=== PATIENT | female | born 1985 | race Caucasian/White ===

== ENCOUNTER → 2020-07-25 10:27 | Outpatient (CLI) | payer OTHER, SELFPAY ==
[2019-01-19 09:46] VITALS: BMI 25.2
[2020-07-25 14:11] LABS: Color, Urine Yellow (Yellow); Glucose, Dipstick Normal (Normal); Ketone-Dipstick Negative (Negative); Leukocyte Esterase-Dipstick 25 /ul (Negative); Nitrite-Dipstick Negative (Negative); Occult Blood-Urine Negative /ul (Negative); Protein-Dipstick Negative (Negative); Urine Bilirubin Dipstick Negative (Negative); Urine Clarity Cloudy (Clear); Urine Urobilinogen Normal (Normal)
[2020-07-25 14:13] LABS: Absolute Lymphocyte Count 1.31 X10^3/uL (0.83-4.51); Absolute Neutrophil Count 4.8 X10^3/uL (2.0-7.7); Basophil# 0.05 X10^3/uL; Basophil% 0.7 % (0-1); Eosinophil# 0.08 X10^3/uL; Eosinophils% 1.2 % (0-5); Hematocrit 41.6 % (37-47); Hemoglobin 13.3 g/dL (12.0-15.0); Lymphocyte # 1.31 X10^3/ul (4.0); Lymphocyte % 18.9 % (19-41); Mean Corpuscular Hgb 29.8 pg (27.0-32.0); Mean Corpuscular Volume 93.1 fL (81-99); Mean Platelet Vol. 11.1 fl (6.2-12.0); Monocyte# 0.55 X10^3/uL; Monocyte% 7.9 % (0-10); NRBC Flagged by Analyzer 0 % (0-5); Neutrophil # 4.82 X10^3/uL (2.7-7.7); Neutrophil % 69.7 % (47-70); Platelet Count 278 K/mm3 (150-450); RBC Distribution Width CV 12.6 % (11.6-14.6); RBC Distribution Width SD 43.2 fl (35.1-43.9); Red Blood Count 4.47 M/mm3 (4.2-5.4); White Blood Count 6.9 K/mm3 (4.4-11.0)
[2020-07-25 15:02] LABS: HIV - WCH Non-Reactive (Nonreactive); Hepatitis B Surface Antigen Non-Reactive (Nonreactive); Hepatitis C Antibody Non-Reactive (Nonreactive)
[2020-07-27 03:07] LABS: Chlamydia By Nucleic Acid AMP Negative (Negative)
[2020-07-27 04:31] LABS: Prenatal RPR NONREACTIVE (NONREACTIVE)
[2020-07-27 08:25] LABS: Gonococcus By Nucleic Acid AMP Negative (Negative)
[2020-07-28 08:38] LABS: Lead, Blood Adult 16+yrs 2 ug/dL (0-4)
[2020-08-01 04:09] LABS: HPV Genotype 16, Aptima Negative (Negative)
[2020-08-01 10:25] LABS: HPV APTIMA, High Risk Positive (Negative); HPV Genotype 18,45 Aptima Negative (Negative)
== END ==
PROVIDERS: PCP Internal Medicine; Visit Provider Obstetrics & Gynecology
DX: Z12.4 Encounter for screening for malignant neoplasm of cervix (principal); Z11.3 Encounter for screening for infections with a predominantly sexual mode of transmission; Z34.81 Encounter for supervision of other normal pregnancy, first trimester
CPT/HCPCS: 36415; 81002; 83655; 85025; 86703; 86762; 86803; 87340; 87491; 87591; 87624; 88175; G0145

== ENCOUNTER → 2023-11-19 | Outpatient (CLI) | payer OTHER, SELFPAY ==
--- OUTSIDE RECORDS SUMMARY | 2023-11-19 10:52 | XMS RPT_ITS | CCD ---
Author Name Unknown Address [address] [place] [address] Organization [facility] Care Team Providers Care Boat Outfitting Supervisor Name Role Phone Debbie MARROQUIN, Sissy Primary Care Provider PIETRO DESIGN COORDINATOR-CNBlair, STACY Kim Attending EshavaERASMO Evans DO Attending Unavailab ERASMO Young DO Attending Unavailab lizy DUVALL DESIGN COORDINATOR-CNBlair, YULISA Kim Attending Esha vailable Jesus MARROQUIN, [facility] Primary Care Provider Unavailbritt e Stacy Chapman Unavailable Unavailable DOC, [facility] Primary Care Unavailable ERASMO BORGES Referring Unavailable KRYSTA, COURTNEY A Attending Unavailable DOC, [facility] Primary Care Unavailable ERASMO BORGES E Referring Unavailable MOULTON, COURTNEY A Attending Unavailable DOC, [facility] Primary Care Unavailable FUENTES NATHAN Attending Unavailable MOULTON, COURTNEY A Referring Unavailable MOULTON, COURTNEY A Referring Unavailable MOULTON, COURTNEY A Attending Unavailable DOC, [facility] Primary Care Unavailable DOC, [facility] Primary Care Unavailable MOULTON, COURTNEY A Attending Unavailable MOULTON, COURTNEY A Referring Unavailable DOC, [facility] Primary Care Unavailable MOULTON, COURTNEY A Referring Unavailable MOULTON, COURTNEY A Attending Unavailable Allergies Allergy Classification Reported Allergen(s) Allergy Type Date of Onset Reaction(s) Facility (4 sources) Seasonal allergy; Translations: [SEASONAL ALLERGIES] Allergy to substance 5 Other: See Comments, Other (See Comments) [facility] Medications Current Medications Medication Drug Class(es) Dates Sig (Normalized) Sig (Original) Xnaifkj-Eiaguxcvr-Z itamin D (CALCIUM MAGNESIUM PO) (2 sources) Calcium-Magnesiu m- Vitamin D (CALCIUM MAGNESIUM PO) Take by mouth 0 Active docusate sodium 100 mg oral capsule (4 sources) Start: 04-01-2021 Colace 100 mg oral capsule Dose : 100 mg = 1 cap(s), Oral, BID, PRN Constipation, # 60 cap(s), 0 Refill(s), Pharmacy: [facility]/pharmacy #[id number], 170, cm, 03/29/21 18:13:00 EDT, Height, kg, 03/29/21 18:13:00 EDT, Dosing Weight Start Date: 04/01/21 Status: Ordered predniSONE 20 mg oral tablet (1 source) Start: 06-05-2022 End: 06-10-2022 take 2 tablets by mouth once daily predniSONE (DELTASONE) 20 mg tablet Indications: Sore throat Take 2 tablets by mouth once daily for 5 days. 10 tablet 0 06/05/2022 06/10/2022 Active Completed/Discontinued Medications Medication Drug Class(es) Dates Sig (Normalized) Sig (Original) citalopram 20 mg oral tablet (1 source) Serotonin Reuptake Inhibitor Start: 07-09-2018 take 0.5 tablet by mouth once daily, then take 1 tablet by mouth once daily citalopram (CELEXA) 20 mg tablet Indications: CHARLY (generalized anxiety disorder) 1/2 pill by mouth once daily X 1 week; then increase to a whole pill daily. 30 tablet 2 07/09/2018 Active Problems Active Problems Problem Classification Problem Date Documented Da te Episodic/Chronic Administrative/social admission (3 sources) Discussed with patient; Translations: [Other specified counseling] Onset: 05-22-2023 05-22-2023 Episodic Anxiety disorders (3 sources) Generalized anxiety disorder; Translations: [Generalized anxiety disorder] Onset: 07-09-2018 07-09-2018 Chronic Contraceptive and procreative management (1 source) Patient encounter status; Translations: [Encounter of female for testing for genetic disease carrier status for procreative management] 06-13-2023 Episodic Mood disorders (2 sources) Depressive disorder; Translations: [Depression] Onset: 05-22-2023 05-22-2023 Chronic Other complications of (1 source) ultrasound scan abnormal; Translations: [Abnormal ultrasonic finding on screening of mother] 06-13-2023 Episodic Other complications of (1 source) Multigravida of advanced maternal age; Translations: [Supervision of elderly multigravida, second trimester] 06-13-2023 Episodic Other upper respiratory infections (1 source) Sore throat symptom; Translations: [Acute pharyngitis, unspecified] Episodic Unclassified (2 sources) Breast feeding (infant) (observable entity) 03-30-2021 Past or Other Problems Problem Classification Problem Date Documented Da te Episodic/Chronic Other non-traumatic joint disorders (1 source) Pain in unspecified knee; Translations: [Pain in joint, lower leg] Onset: 2014 2014 Episodic Results Test Name Value Interpretation Reference Range Facil ity Vital Signs Date Time Vital Sign Value Performing Clinician Faci lity 06-05-2022 15:35-0400 Body temperature 97.7 [degF] Scotty Powell DESIGN COORDINATOR.FAMILY RESOURCE MANAGEMENT SPECIALIST Work Phone: [facility] 06-05-2022 15:35-0400 Body weight 85.73 kg Scotty Powell DESIGN COORDINATOR.FAMILY RESOURCE MANAGEMENT SPECIALIST Work Phone: [facility] 06-05-2022 15:35-0400 Diastolic blood pressure 72 mm[Hg] Scotty Powell DESIGN COORDINATOR.FAMILY RESOURCE MANAGEMENT SPECIALIST Work Phone: [facility] 06-05-2022 15:35-0400 Heart rate 68 /min Scotty Powell DESIGN COORDINATOR.FAMILY RESOURCE MANAGEMENT SPECIALIST Work Phone: [facility] 06-05-2022 15:35-0400 Respiratory rate 16 /min Scotty Powell DESIGN COORDINATOR.FAMILY RESOURCE MANAGEMENT SPECIALIST Work Phone: [facility] 06-05-2022 15:35-0400 SaO2% (BldA) [Mass fraction] 98 % Scotty Powell DESIGN COORDINATOR.FAMILY RESOURCE MANAGEMENT SPECIALIST Work Phone: [facility] 06-05-2022 15:35-0400 Systolic blood pressure 110 mm[Hg] Scotty Powell DESIGN COORDINATOR.FAMILY RESOURCE MANAGEMENT SPECIALIST Work Phone: [facility] Encounters Encounter Date Encounter Type Care Provider Facility Start: 06-18-2023 End: 06-19-2023 ambulatory COURTNEY MOULTON [facility] Start: 06-18-2023 End: 06-18-2023 Subsequent hospital visit by physician Courtney Moulton MD Work Phone: [facility] Procedures Date Procedure Procedure Detail Performing Clinician Start: 06-05-2022 STREP A MOLECULAR (POC) [facility] Provider Plan of Treatment Date Care Activity Detail Author Start: 07-11-2023 FLU (#1) FLU (#1) [facility] Start: 07-11-2023 End: 07-11-2023 Professional / ancillary services management 07/11/2023 11:15 AM EDT Ancillary Procedure Visit Maternal Medicine [address] [facility] [address] [place] [address] [facility] Start: 07-07-2023 End: 07-07-2023 Patient encounter procedure 07/07/2023 1:45 PM EDT Office Visit [facility] [address] [facility] [place] [address] Maury Oakley MD [place], [place] [id number] [facility] Start: 07-01-2023 End: 07-01-2023 Patient encounter procedure 07/01/2023 2:15 PM EDT Office Visit [address] [address] [address] Nathan MD [place], [place] [id number] [facility] Start: 07-11-2022 Influenza vaccination INFLUENZA (#1) [facility] Start: 04-05-2020 PAP TESTING PAP TESTING [facility] Start: 2017 HPV TESTING HPV TESTING [facility] Start: 2008 Microscopic observation [Identifier] in Cervix by Cyto stain Pap Smear [facility] Start: 2006 Urine microalbumin profile DTAP,TDAP,TD (1 - Tdap) [facility] Start: 2005 HEPATITIS C SCREENING HEPATITIS C SCREENING [facility] Start: 2005 HIV SCREENING HIV SCREENING [facility] Start: 2003 MenB (1 of 2 - MenB 2-Dose Series Bexsero) MenB (1 of 2 - MenB 2-Dose Series Bexsero) [facility] Start: 1999 Adult depression screening assessment DEPRESSION SCREENING [facility] Start: 1994 Tetanus Diphtheria and Pertussis Vaccines (1 - Tdap) Tetanus Diphtheria and Pertussis Vaccines (1 - Tdap) [facility] Start: 1993 PNEUMOCOCCAL (1 - PCV) PNEUMOCOCCAL (1 - PCV) [facility] Start: 1988 MMR (1 of 1 - Standard series) MMR (1 of 1 - Standard series) [facility] Start: 1988 Varicella (1 of 2 - 2-dose childhood series) Varicella (1 of 2 - 2-dose childhood series) [facility] Start: 02-01-1988 COVID-19 (#1) COVID-19 (#1) [facility] Start: 02-01-1988 COVID-19 VACCINE (#1) COVID-19 VACCINE (#1) [facility] Start: 1987 Hepatitis B (1 of 3 - 3-dose series) Hepatitis B (1 of 3 - 3-dose series) [facility] ALERE STREP A TEST (AG) ALERE ST REP A TEST (AG) Lab Routine Sore throat Ordered: 06/05/2022 [facility] Work Phone: Payers Date Payer Category Payer Unknown [employer] [facility] [id number] 2023-Present [phone] [address] [place] [address] [id number] 2023 Unknown [id number] 2021 Unknown MMO MMO [employer] [id number] 2021-Present [phone] [address] [place] [address] PPO [id number] 1987 Unknown [id number] 1987 Unknown [id number] 1987 Unknown [id number] 1987 Unknown [id number] 1987 Unknown [id number] 1987 Unknown [id number] 1987 Unknown [id number] 1987 Unknown [id number] 1987 Unknown [id number] 1987 Unknown [id number] Social History Date Type Detail Facility [facility]: [facility] Work Phone: History of tobacco use Cigarette Smoker [facility] Work Phone: Start: 2014 End: 06-18-2023 Cigarettes smoked current (pack per day) - Reported 0.1 [facility] Start: 2014 End: 06-13-2023 Tobacco use and exposure Smokeless tobacco non-user [facility] Work Phone: Start: 06-05-2022 Alcohol intake Current drinke r of alcohol (finding) [facility] Start: 08-01-2011 History SDOH Alcohol Comment weekly [facility] Start: 01-17-2015 Tobacco Comment just weekly on ce or twice [facility] Start: 1987 Sex Assigned At Not on file [facility] Start: 05-26-2022 End: 06-05-2022 Exposure to SARS-CoV-2 (event) Not sure [facility] Work Phone: Tobacco smoking status No Smokin g Status Entered [facility] Michelle Sex Assigned At Female [facility] Start: 06-13-2023 [facility] History of tobacco use Current smoker [facility] Start: 06-13-2023 End: 06-18-2023 Alcohol intake Ex-drinker (finding) [facility] Start: 06-13-2023 End: 06-18-2023 Tobacco use panel [facility] Start: 06-13-2023 Alcohol Comment weekly before pregna ncy [facility] Start: 01-03-2023 [facility] Progress note 06-05-2022 Note Date & Type Note Facility 06-05-2022 Note HNO ID: [id number] Author: Scotty Powell APRN.FAMILY RESOURCE MANAGEMENT SPECIALIST Service: ? Author Type: Nurse Practitioner Type: Progress Notes Filed: 06/05/2022 4:25 PM Note Text: Subjective HPI HPI Lyla Garcia is a 36 year old female who presents today for CC of st, stiff neck in AM, fatigue. This started 1 dasy ago. Has tried otc medication for relief. Symptoms are worsened by nothing. Risk factors no known sick exposures. Denies cough, congestion, fever, rash, ear pain. .Patient presents with: Sore Throat: ST x 1 day with a stiff neck and fatigue PAST MEDICAL HISTORY Diagnosis Date - NEGATIVE MEDICAL HISTORY PAST SURGICAL HISTORY Procedure Laterality Date - NONE ALLERGIES Seasonal Allergies MEDICATIONS Multivitamin capsule Take 1 capsule by mouth once daily. predniSONE (DELTASONE) 20 mg tablet Take 2 tablets by mouth once daily for 5 days. citalopram (CELEXA) 20 mg tablet 1/2 pill by mouth once daily X 1 week; then increase to a whole pill daily. Doxycycline Monohydrate 50 mg tablet Take 1 tablet by mouth twice daily. X 8 weeks. FAMILY HISTORY Problem Relation Age of Onset - Heart Maternal Grandfather - Osteoporosis Maternal Grandmother - other (ALS [Other]) Father late 30's Social History Tobacco Use - Smoking status: Current Some Day Smoker Packs/day: 0.10 Years: 5.00 Pack years: 0.50 Types: Cigarettes - Smokeless tobacco: Never Used - Tobacco comment: just weekly once or twice Substance Use Topics - Alcohol use: Yes Comment: weekly - Drug use: No ROS Objective Blood pressure 110/72, pulse 68, temperature 36.5 ?C (97.7 ?F), temperature source Tympanic, resp. rate 16, weight 85.7 kg (189 lb), last menstrual period 05/23/2018, SpO2 98 %. Physical Exam Constitutional: General: She is not in acute distress. Appearance: She is not toxic-appearing or diaphoretic. HENT: Head: Normocephalic and atraumatic. Nose: Nose normal. Mouth/Throat: Lips: [place]. Mouth: Mucous membranes are moist. Tongue: No lesions. Pharynx: Uvula midline. Posterior oropharyngeal erythema present. No pharyngeal swelling, oropharyngeal exudate or uvula swelling. Cardiovascular: Rate and Rhythm: Normal rate and regular rhythm. Heart sounds: Normal heart sounds, S1 normal and S2 normal. Pulmonary: Effort: Pulmonary effort is normal. Breath sounds: Normal breath sounds. Lymphadenopathy: Cervical: Cervical adenopathy (small, nontender. ) present. Right cervical: Superficial cervical adenopathy present. Left cervical: Superficial cervical adenopathy present. Neurological: Mental Status: She is alert and oriented to person, place, and time. Gait: Gait is intact. ASSESSMENT/PLAN: 1. Sore throat - ICD9: 462, ICD10: J02.9 - suspect viral - Alere Strep Test neg, no culture pending - Discussed supportive care treatment with fluids, rest and analgesia. - The patient should follow up in 3-5 days if symptoms persist or worsen - ALERE STREP A TEST (AG) - PREDNISONE 20 MG TABLET Agrees to plan Scotty Powell APRN.ELIZABETH [facility] History of Present illness Narrative 06-05-2022 Scotty Powell APRN.ELIZABETH - 06/05/2022 4:23 PM EDT Note Date & Type Note Facility 06-05-2022 History of Presen t illness Narrative Subjective HPI HPI Lyla Garcia is a 36 year old female who presents today for CC of st, stiff neck in AM, fatigue. This started 1 dasy ago. Has tried otc medication for relief. Symptoms are worsened by nothing. Risk factors no known sick exposures. Denies cough, congestion, fever, rash, ear pain. .Patient presents with: Sore Throat: ST x 1 day with a stiff neck and fatigue PAST MEDICAL HISTORY Diagnosis Date NEGATIVE MEDICAL HISTORY PAST SURGICAL HISTORY Procedure Laterality Date NONE ALLERGIES Seasonal Allergies MEDICATIONS Multivitamin capsule Take 1 capsule by mouth once daily. predniSONE (DELTASONE) 20 mg tablet Take 2 tablets by mouth once daily for 5 days. citalopram (CELEXA) 20 mg tablet 1/2 pill by mouth once daily X 1 week; then increase to a whole pill daily. Doxycycline Monohydrate 50 mg tablet Take 1 tablet by mouth twice daily. X 8 weeks. FAMILY HISTORY Problem Relation Age of Onset Heart Maternal Grandfather Osteoporosis Maternal Grandmother other (ALS [Other]) Father late 30's Social History Tobacco Use Smoking status: Current Some Day Smoker Packs/day: 0.10 Years: 5.00 Pack years: 0.50 Types: Cigarettes Smokeless tobacco: Never Used Tobacco comment: just weekly once or twice Substance Use Topics Alcohol use: Yes Comment: weekly Drug use: No ROS Objective Blood pressure 110/72, pulse 68, temperature 36.5 C (97.7 F), temperature source Tympanic, resp. rate 16, weight 85.7 kg (189 lb), last menstrual period 05/23/2018, SpO2 98 %. Physical Exam Constitutional: General: She is not in acute distress. Appearance: She is not toxic-appearing or diaphoretic. HENT: Head: Normocephalic and atraumatic. Nose: Nose normal. Mouth/Throat: Lips: [place]. Mouth: Mucous membranes are moist. Tongue: No lesions. Pharynx: Uvula midline. Posterior oropharyngeal erythema present. No pharyngeal swelling, oropharyngeal exudate or uvula swelling. Cardiovascular: Rate and Rhythm: Normal rate and regular rhythm. Heart sounds: Normal heart sounds, S1 normal and S2 normal. Pulmonary: Effort: Pulmonary effort is normal. Breath sounds: Normal breath sounds. Lymphadenopathy: Cervical: Cervical adenopathy (small, nontender. ) present. Right cervical: Superficial cervical adenopathy present. Left cervical: Superficial cervical adenopathy present. Neurological: Mental Status: She is alert and oriented to person, place, and time. Gait: Gait is intact. ASSESSMENT/PLAN: 1. Sore throat - ICD9: 462, ICD10: J02.9 - suspect viral - Alere Strep Test neg, no culture pending - Discussed supportive care treatment with fluids, rest and analgesia. - The patient should follow up in 3-5 days if symptoms persist or worsen - ALERE STREP A TEST (AG) - PREDNISONE 20 MG TABLET Agrees to plan Scotty Powell APRN.CNP documented in this encounter [facility] Evaluation + Plan note Note Date & Type Note Facility Evaluation + Plan note No data available for this section [facility] Evaluation + Plan note Note Date & Type Note Facility Evaluation + Plan note Future Appointments [facility] Evaluation note Note Date & Type Note Facility documented in this encounter [facility] Evaluation note Note Date & Type Note Facility documented in this encounter [facility] Evaluation note Note Date & Type Note Facility documented in this encounter [facility] Discharge instructions Note Date & Type Note Facility Hospital Discharge instructions No data available for this section [facility] Progress note Note Date & Type Note Facility Progress note No data available for this section [facility] Summary Purpose Family History No Family History Records FoundNo Family History Records FoundNo Family History Records Found Advance Directives No Advanced Directives Records FoundNo Advanced Directives Records FoundNo Advanced Directives Records Found Additional Source Comments Source Comments (unrecognize d section and content) In the event this informatio n is protected by the Federal Confidentiality of Alcohol and Drug Abuse Patient Records regulations: The Federal rules restrict any use of the information to criminally investigate or prosecute any alcohol or drug abuse patient.[facility] Reason for Visit (unrecogniz ed section and content) Specialty Diagnoses / Procedures Referred By Edwar viera Referred To Contact Lab Diagnoses Abnormal ultrasound Supervision of elderly multigravida (>=35 years old at time of delivery), second trimester Encounter of female for testing for genetic disease carrier status for procreative management Procedures Genetic Sendout: Carrier Screening, Genetic Courtney Moulton MD [address] [place] [address] Referral ID Status Reason Start Date Expiration Date V isits Requested Visits Authorized [id number] Open Specialty Services Required 06/13/2023 06/12/2024 1 1 Care Teams (unrecognized sec tion and content) Boat Outfitting Supervisor Relationship Specialty Start Date End Date [place] [address] PCP - General Pediatrics 06/10/23 Boat Outfitting Supervisor Relationship Specialty Start Date End [place] [address] PCP - General Pediatrics 06/10/23 [place] [address] Genetic Counselor Genetics 06/17/23 INFORMATION SOURCE (unrecogn ized section and content) DATE CREATED AUTHOR AUTHOR'S ORGANIZ ATION 05/22/2023 [facility] DATE CREATED AUTHOR AUTHOR'S ORGANIZ ATION 07/29/2023 [facility] FOR RECORDS PERTAINING TO PATIENTS WHO ARE OR HAVE BEEN ENROLLED IN A CHEMICAL DEPENDENCY/SUBSTANCEABUSE PROGRAM, SOME INFORMATION MAY BE OMITTED. This clinical summary was aggregated from multiple sources. Caution should be exercised in using it in the provision of clinical care. This summary normalizes information from multiple sources, and as a consequence, information in this document may materially change the coding, format and clinical context of patient data. In addition, data may be omitted in some cases. CLINICAL DECISIONS SHOULD BE BASED ON THE PRIMARY CLINICAL RECORDS. [facility]. provides no warranty or guarantee of the accuracy or completeness of information in this document.
[2023-11-19 12:18] LABS: Absolute Lymphocyte Count 1.09 X10^3/uL (0.83-4.51); Absolute Neutrophil Count 4.8 X10^3/uL (2.0-7.7); Basophil# 0.03 X10^3/uL; Basophil% 0.5 % (0-1); Eosinophils% 1.5 % (0-5); Hematocrit 42.8 % (37-47); Hemoglobin 13.4 g/dL (12.0-15.0); Lymphocyte # 1.09 X10^3/ul (0.83-4.51); Lymphocyte % 16.7 % (19-41); Mean Corp Hgb Conc 31.3 g/dL (32-36); Mean Corpuscular Hgb 28.3 pg (27.0-32.0); Mean Corpuscular Volume 90.3 fL (81-99); Mean Platelet Vol. 10.6 fl (6.2-12.0); Monocyte# 0.45 X10^3/uL; Monocyte% 6.9 % (0-10); NRBC Flagged by Analyzer 0 % (0-5); Neutrophil % 73.6 % (47-70); Platelet Count 252 K/mm3 (150-450); RBC Distribution Width CV 13.4 % (11.6-14.6); RBC Distribution Width SD 44.6 fl (35.1-43.9); Red Blood Count 4.74 M/mm3 (4.2-5.4); White Blood Count 6.5 K/mm3 (4.4-11.0)
[2023-11-19 13:10] LABS: Vitamin B12 544 pg/mL (211-911)
[2023-11-19 13:20] LABS: AST(SGOT) 19 U/L (15-37); Alanine Aminotransfer ALT/SGPT 39 U/L (13-56); Albumin, Serum 3.8 g/dL (3.2-5.0); Alkaline Phosphatase 77 U/L (45-117); Anion Gap 6 (5-15); BUN 7 mg/dL (7-18); BUN/Creat Ratio 9.8 RATIO (10-20); Calcium,Total 9.2 mg/dL (8.5-10.1); Chloride 108 mmol/L (98-107); Cholesterol 157 mg/dL (200); Creatinine, Serum 0.71 mg/dL (0.55-1.02); EST Glomerular Filtration Rate 99 mL/min (>60); Est Glom Filt Rate - Afr Amer 119 mL/min (>60); Ferritin 47 ng/mL (8-252); Globulin 3.7 g/dL (2.2-4.2); Glucose 98 mg/dL (74-106); High Density Lipoprotein 64 mg/dL; Magnesium 2.2 mg/dL (1.6-2.6); Potassium 4.1 mmol/L (3.5-5.1); Protein, Total 7.5 g/dL (6.4-8.2); Sodium Level 138 mmol/L (136-145); Thyroid Stim Hormone (TSH) 1.93 uIU/mL (0.358-3.74); Triglycerides 108 mg/dL; Very Low Density Lipoprotein 22 mg/dL (5-40)
== END | disposition home or self-care (01) ==
LOC: MFPLAB 10:26
PROVIDERS: PCP Family Medicine; Visit Provider Family Medicine
DX: F32.A Depression, unspecified (principal); Z13.228 Encounter for screening for other metabolic disorders
CPT/HCPCS: 36415; 80053; 80061; 82306; 82607; 82728; 83036; 83735; 84443; 85025

== ENCOUNTER → 2025-06-27 | Outpatient (CLI) | payer OTHER, SELFPAY ==
[2025-06-27 17:54] LABS: Color, Urine Yellow (Yellow); Glucose, Dipstick Normal (Normal); Ketone-Dipstick Negative (Negative); Leukocyte Esterase-Dipstick Negative /ul (Negative); Nitrite-Dipstick Negative (Negative); Occult Blood-Urine Negative /ul (Negative); Protein-Dipstick 15 mg/dl (Negative); Specific Gravity, Urine 1.015 (1.002-1.030); Urine Bilirubin Dipstick Negative (Negative)
== END | disposition home or self-care (01) ==
LOC: MFPLAB 14:34
PROVIDERS: Visit Provider Family Medicine
DX: R35.0 Frequency of micturition (principal)
CPT/HCPCS: 81002; 87086; 87088